=== PATIENT | male | born 1985 | race Caucasian/White ===

== ENCOUNTER → 2020-01-05 | Outpatient (CLI) | payer OTHER ==
--- NOTE | 2020-01-05 09:25 | REP ---
LEFT LOWER EXTREMITY DUPLEX DOPPLER VENOUS ULTRASOUND: Real-time compression and duplex Doppler interrogation of the left lower extremity deep vein systems performed. Left common femoral, superficial femoral, and popliteal veins are fully compressible with transducer pressure and demonstrate normal spontaneous and phasic flow without evidence of deep venous thrombosis. There is nonocclusive thrombus seen throughout the greater saphenous vein. IMPRESSION: No deep vein thrombosis left lower extremity. Nonocclusive thrombus throughout the greater saphenous vein. Electronically Signed by Randolph Mccauley MD 01/09/2020 03:14 P
== END ==
LOC: M RAD 07:01
PROVIDERS: ATTEND Physician Assistant
DX: I82.90 Acute embolism and thrombosis of unspecified vein (principal)

== ENCOUNTER → 2020-02-26 | Outpatient (CLI) | payer OTHER ==
--- NOTE | 2020-02-27 19:31 | REP ---
Clinical: History of thrombus in the greater saphenous vein. Comparison: 01/05/2020 . Technique: Mccauley scale and color Doppler evaluation using linear high frequency transducer. Findings: Ultrasound examination of the left lower extremity deep venous structures from the common femoral vein to the popliteal vein demonstrates normal compressibility flow and wave patterns in response to respiration and augmentation. There is no evidence for deep venous thrombosis. There is continued progressive thrombus involving the greater saphenous vein which is now occlusive in the distal aspect of the vein. Impression: 1. No evidence for deep venous thrombosis. 2. Thrombus in the greater saphenous vein which is now occlusive distally. Electronically Signed by Jomar Santos MD 02/27/2020 07:22 P
== END ==
LOC: M RAD 13:44
DX: I82.812 Embolism and thrombosis of superficial veins of left lower extremity (principal)

== ENCOUNTER 2020-03-15 14:15 | Emergency (ER) | payer OTHER ==
[~2020-03-15] VITALS: Ht 182.9 cm; Wt 88.3 kg
[2020-03-15] MEDS ORDERED: XARE10TA PO (14:22)
[2020-03-15] MEDS ORDERED: WELL100T2 PO (14:22)
[2020-03-15] MEDS ORDERED: ZOLO50TA PO (14:22)
[2020-03-15 15:33] LABS: BASO % 0.6 % (0.0-1.0); EOS # 0.2 10^3/uL (0.0-0.5); HEMATOCRIT 45.2 % (42.0-52.0); HEMOGLOBIN 15.4 g/dl (13.5-17.5); LYMPH # 1.6 10^3/uL (1.5-5.0); LYMPH % 23.6 % (24.0-44.0); MEAN CORPUSCULAR HEMOGLOBIN 30.2 pg (27.0-33.0); MEAN CORPUSCULAR HGB CONC 34.1 g/dl (32.0-36.5); MEAN CORPUSCULAR VOLUME 88.6 fl (80.0-96.0); MONO # 0.6 10^3/uL (0.0-0.8); MONO % 8.2 % (0.0-5.0); NEUTROPHILS # 4.5 10^3/uL (1.5-8.5); NEUTROPHILS % 64.2 % (36.0-66.0); PLATELET COUNT, AUTOMATED 203 10^3/uL (150-450); WHITE BLOOD COUNT 6.9 10^3/uL (4.0-10.0)
[2020-03-15 15:43] LABS: INR 1.11
[2020-03-15 15:44] LABS: PARTIAL THROMBOPLASTIN TIME 33.8 SECONDS (25.0-38.4)
--- NOTE | 2020-03-15 15:45 | REP ---
Left lower extremity Duplex Doppler venous ultrasound: Real time compression and duplex Doppler interrogation of the left lower extremity deep venous system is performed. The left common femoral, superficial femoral and popliteal veins are fully compressible with transducer pressure and demonstrate normal spontaneous and phasic flow, without evidence of deep venous thrombosis. Impression: No evidence of deep venous thrombosis of the left lower extremity femoral popliteal venous system. There is diffuse thrombosis in the greater saphenous vein, which begins 7 mm from the saphenofemoral junction. Electronically Signed by Randolph Mccauley MD 03/15/2020 03:36 P
[2020-03-15 15:48] LABS: BLOOD UREA NITROGEN 17 MG/DL (7-18); CALCIUM LEVEL 9.2 MG/DL (8.5-10.1); CARBON DIOXIDE LEVEL 26 MEQ/L (21-32); CHLORIDE LEVEL 108 MEQ/L (98-107); CREATININE FOR GFR 1.13 MG/DL (0.70-1.30); GLOMERULAR FILTRATION RATE > 60.0 (>60); GLUCOSE, FASTING 94 MG/DL (70-100); SODIUM LEVEL 142 MEQ/L (136-145)
[2020-03-15 18:36] VITALS: BP 134/90
[2020-03-15] MEDS ORDERED: LIDOCAINE 5% (LIDODERM) PATCH TD ONE (18:45)
[2020-03-15] MEDS ORDERED: LIDO5DIS41 TOP (18:48)
[2020-03-16] MEDS ORDERED: **NOTE PATIENT COMMENT** MISC XX SCH (07:00)
== END 2020-03-15 18:56 | disposition home or self-care (01) ==
LOC: M ED 14:15
DX: I82.812 Embolism and thrombosis of superficial veins of left lower extremity (principal); M54.5 Low back pain; F33.9 Major depressive disorder, recurrent, unspecified; F41.9 Anxiety disorder, unspecified; Z79.899 Other long term (current) drug therapy; Z79.01 Long term (current) use of anticoagulants; F17.210 Nicotine dependence, cigarettes, uncomplicated

== ENCOUNTER → 2020-03-28 | Outpatient (CLI) | payer OTHER ==
[~2020-03-28] MED LIST: LIDO5DIS41 TOP; WELL100T2 PO; XARE10TA PO; ZOLO50TA PO
[2020-04-02 17:07] LABS: ANTI THROMBIN 3 ANTIGEN IMMUNO 104 % (72-124); ANTINUCLEAR ANTIBODIES DIRECT Negative (Negative); PROTEIN C FUNCTIONAL ACTIVITY 167 % (73-180); PROTEIN S FUNCTIONAL ACTIVITY 117 % (63-140)
[2020-04-05 11:47] LABS: DRVV SCREEN 71.6 SEC
[2020-04-05 11:52] LABS: PTT LUPUS TYPE ANTICOAG SCREEN 1.7 (0-1.2)
[2020-04-05 12:01] LABS: DRVV CONFIRM 50.8 SEC; LUPUS CONFIRM RATIO 1.3
[2020-04-05 12:06] LABS: NORMALIZED RATIO 1.31 (0.00-1.20)
== END ==
LOC: M LAB 12:23
PROVIDERS: ATTEND Physician Assistant
DX: I82.812 Embolism and thrombosis of superficial veins of left lower extremity (principal)

== ENCOUNTER → 2020-06-13 | Outpatient (CLI) | payer OTHER ==
--- NOTE | 2020-07-25 15:59 | REP ---
LEFT LOWER EXTREMITY DUPLEX DOPPLER VENOUS ULTRASOUND: HISTORY: Left greater saphenous vein thrombus. FINDINGS: Real time compression and duplex Doppler interrogation of the left lower extremity deep vein system is performed and compared to prior study of 03/15/20. Once again, the common femoral, superficial femoral and popliteal veins are fully compressible with transducer pressure and demonstrates normal spontaneous and phasic flow without evidence of deep venous thrombosis. The previously noted greater saphenous vein thrombosis has significantly improved. There is now only mild thrombus in the proximal portion of the greater saphenous vein. The more peripheral greater saphenous vein diffusely demonstrates a thickened wall compatible with significant resolution and resolving thrombus. IMPRESSION: Significant improvement of diffuse left greater saphenous vein thrombosis compared to prior study of 03/15/20. There is now only mild thrombus in the proximal greater saphenous vein. MTDD
== END ==
LOC: M RAD 08:30
PROVIDERS: ATTEND Surgery Vascular Surgery
DX: I82.812 Embolism and thrombosis of superficial veins of left lower extremity (principal)

== ENCOUNTER → 2021-08-12 | Outpatient (REF) ==
--- NOTE | 2021-08-12 12:22 | REP ---
INDICATION: PAIN,SOB COMPARISON: None. TECHNIQUE: PA and lateral. FINDINGS: The mediastinum and cardiac silhouette are normal. The lung bajwa are clear and without acute consolidation, effusion, or pneumothorax. The skeletal structures are intact and normal. IMPRESSION: No acute cardiopulmonary process. <Electronically signed by Jomar Santos > 08/12/21 [id number]
--- NOTE | 2021-08-12 12:23 | REP ---
INDICATION: PAIN,SOB. COMPARISON: None. TECHNIQUE: Water's, lateral, PA and SMV of the sinuses FINDINGS: Sinuses are well aerated and clear. No obvious mucoperiosteal thickening. No fluid level. Osseous structures are intact. No foreign body. IMPRESSION: Normal sinus series <Electronically signed by Jomar Santos > 08/12/21 [id number]
--- NOTE | 2021-08-12 12:24 | REP ---
INDICATION: PAIN,SOB COMPARISON: None. TECHNIQUE: AP, lateral, bilateral oblique views right foot. FINDINGS: Postsurgical arthritic changes involving the 1st toe with fixation spanning the metatarsophalangeal joint. Remainder of the examination is relatively normal. No acute fracture or dislocation. IMPRESSION: Focal postsurgical arthritic changes involving the 1st toe. <Electronically signed by Jomar Santos > 08/12/21 [id number]
--- NOTE | 2021-08-12 12:25 | REP ---
INDICATION: PAIN,SOB COMPARISON: None. TECHNIQUE: AP, lateral, bilateral oblique views right hand. FINDINGS: The osseous structures and joint spaces are intact and normal. There is no evidence for acute fracture or dislocation. Surrounding soft tissues are unremarkable. No subcutaneous emphysema or radiodense foreign body. IMPRESSION: Normal right hand series. No acute fracture or dislocation. <Electronically signed by Jomar Santos > 08/12/21 [id number]
== END ==
LOC: M PLAIMG 11:26
PROVIDERS: ATTEND Internal Medicine
DX: Z00.00 Encounter for general adult medical examination without abnormal findings (principal)